=== PATIENT | male | born 2000 | race Caucasian/White ===

== ENCOUNTER 2018-05-17 00:50 | Observation (INO) ==
[2018-05-17] MEDS ORDERED: DiphenhydrAMINE HCL 50 MG/ML VIAL IV STA (01:22)
[2018-05-17] MEDS ORDERED: METOCLOPRAMIDE HCL INJ 5 MG/ML 2 ML VIAL IV STA (01:22)
[2018-05-17] MEDS ORDERED: KETOROLAC TROMETHAMINE 15 MG/ML VIAL IV STA (01:22)
[2018-05-17] MEDS ORDERED: SODIUM CHLORIDE 0.9% 1000ML 1,000 ML IV SCH (01:30)
[2018-05-17 01:32] LABS: Basophils # (auto) 0.03 K/uL (0-0.2); Basophils % (auto) 0.1 %; Eosinophils # (auto) 0.11 K/uL (0-0.5); Eosinophils % (auto) 0.5 %; Hematocrit (blood only) 47.8 % (42-52); Hemoglobin 16.9 g/dL (14.0-18.0); Immature Granulocytes # (auto) 0.07 K/uL (0.00-0.02); Immature Granulocytes % (auto) 0.3 %; Lymphocytes # (auto) 2.34 K/uL (1.2-3.4); Lymphocytes % (auto) 11.6 %; Mean Corpuscular Hgb Conc 35.4 g/dL (32-36); Mean Corpuscular Volume 87.4 fL (80-100); Mean Platelet Volume 11.3 fL (7.4-10.4); Monocytes # (auto) 1.15 K/uL (0.11-0.59); Monocytes % (auto) 5.7 %; Neutrophils % (auto) 81.8 %; Platelet Count 252 K/uL (130-400); RDW Coefficient of Variation 13.2 % (11.5-14.5); RDW Standard Deviation 42.4 fL (36.4-46.3); Red Blood Count 5.47 M/uL (4.7-6.1)
[2018-05-17 01:39] LABS: Albumin Level 4.8 gm/dl (3.4-5.0); Calcium 9.7 mg/dl (8.5-10.1); Creatinine Clr Calc Pharmacy 90.8 ml/min; Est GFR (African American) 87.8; Est GFR (Non-African American) 75.7; Potassium 3.9 mmol/L (3.5-5.1)
[2018-05-17 01:42] LABS: Albumin Globulin Ratio 1.3 (0.9-2); Bilirubin,Total 0.9 mg/dl (0.2-1); Globulin 3.6 gm/dl (2.5-4.0); Total Protein 8.4 gm/dl (6.4-8.2)
[2018-05-17 01:45] LABS: Appearance Urine Clear (Clear); Bilirubin Urine Negative (Negative); Color Urine Yellow; Glucose Urine UA Negative (Negative); Ketones Urine 2+ (Negative); Leukocyte Esterase Urine Negative (Negative); Nitrite Urine Negative (Negative); Protein Urine Negative (Negative); Specific Gravity Urine 1.029 (1.000-1.030); Urobilinogen Urine Negative (Negative); pH Urine 5.5 (4.5-7.5)
[2018-05-17] MEDS ORDERED: IOVERSOL 100ml IV PRN (02:02)
[2018-05-17] MEDS ORDERED: cefOXitin 2,000 MG/60 ML BAG IV STA (02:12)
[2018-05-17] MEDS ORDERED: cefOXitin 1,000 MG/50 ML BAG IV ONE (02:22)
--- NOTE | 2018-05-17 02:37 | History & Physical Bridge Note ---
Date of Service May 17, 2018 History & Physical Bridge Note I have examined the patient, reviewed the History & Physical and in the interval since the performance of the History & Physical I have noted the following changes of clinical significance: no changes noted
--- NOTE | 2018-05-17 02:37 | Surgery Consultation ---
Date of Consultation May 17, 2018 Assessment & Plan (1) Acute appendicitis: pt is a 18 year old male who presents to Er with acute abdominal pain, IMP: acute abdominal pain, acute appendicitis Plan, I recommend to do laparoscopic appendectomy, possible open, D/W benefits, risks and alternatives of the surgery, the risks - infection, bleeding, abscess , injury bowel, and , pt understood, he agrees with the surgery, I answered all questions, History of Present Illness History of Present Illness pt is a 18 year old male who presents to ER with 0.5 day history lower abdominal pain, now the pain is located at RLQ area, some nausea, no vomiting, pt denies fever, no diarrhea, pt is health in the past, pt had CBC , WBC 20,000 , CT scan - acute appendicitis. Allergies Allergy/AdvReac Type Severity Reaction Status Date / Time cashew nut Allergy Severe Anaphylaxis Verified 05/17/18 01:16 Home Medications Home Medications Medication Instructions Recorded Confirmed Type epinephrine [EpiPen] 0.3 mg IM DIRECTED PRN 05/17/18 05/17/18 History Patient History Medical History Acute appendicitis Social History Feels Safe at Home: Yes Smoking Status: Never smoker Review of Systems Constitutional: as per Subjective / HPI Ear, Nose, Mouth, Throat: as per Subjective / HPI Respiratory: as per Subjective / HPI Cardiovascular: as per Subjective / HPI Gastrointestinal: as per Subjective / HPI Genitourinary (Male): as per Subjective / HPI Musculoskeletal: as per Subjective / HPI Integumentary: as per Subjective / HPI Neurologic: as per Subjective / HPI Psychiatric: as per Subjective / HPI Endocrine: as per Subjective / HPI Hematologic / Lymphatic: as per Subjective / HPI Physical Exam 2 Vital Signs (Past 24 Hours): Last Vital Signs Temp 37.1 C 05/17/18 00:53 Pulse 71 05/17/18 02:04 Resp 15 05/17/18 02:04 BP 164/87 H 05/17/18 00:53 Pulse Ox 99 05/17/18 02:04 Constitutional: WD/WN, vitals as above well developed and well nourished Neck: trachea midline, no thyromegaly Respiratory: normal respiratory effort, lungs clear to auscultation normal respiratory effort Cardiovascular: RRR, no murmur, no edema Rate/Rhythm: regular rate and regular rhythm Heart Sounds: normal S1 and normal S2 Gastrointestinal (Abdomen): Percussion/Palpation: + abdomen tender, + guarding and abdomen soft some tenderness at RLQ, no rebound pain, BS + Neurologic: awake Psychiatric: Orientation: alert and oriented x 3 Lymphatic: no cervical or axillary lymphadenopathy Results & Data Laboratory Results Abnormal lab results 05/17/18 05/17/18 05/17/18 Range/Units 01:00 01:05 01:05 WBC 20.20 H (4.8-10.8) K/uL MPV 11.3 H (7.4-10.4) fL Immature Gran # (Auto) 0.07 H (0.00-0.02) K/uL Neut # (Auto) 16.50 H (1.4-6.5) K/uL [place] # (Auto) 1.15 H (0.11-0.59) K/uL Glucose 101 H (70-99) mg/dl Total Creatine Kinase 372 H (39-308) U/L Total Protein 8.4 H (6.4-8.2) gm/dl Lipase 65 L (73-393) U/L Urine Ketones 2+ H (Negative) Diagnostic Findings CT scan- acute appendicitis
--- NOTE | 2018-05-17 02:45 | Emergency Department Note ---
History of Present Illness General Chief complaint: Abdominal Pain Stated complaint: SEVERE ABDOMINAL PAIN,SOB,WEAKNESS History of Present Illness Maximum Pain Intensity: 8 This 18-year-old presents to the ER complaining of abdominal pain Location: Periumbilical Quality: Crampy Severity: Moderate Duration: Since 6 PM Timing: Started at 6 PM Context: Pain persisted and patient came here Modifying factors: better with nothing; worse with palpation Patient denies chest pain, dyspnea, vomiting, diarrhea, back pain, testicular pain, penile pain, urinary symptoms. No prior surgeries. Home Medications Home Medications Medication Instructions Recorded Confirmed Type epinephrine [EpiPen] 0.3 mg IM DIRECTED PRN 05/17/18 05/17/18 History Allergies Allergy/AdvReac Type Severity Reaction Status Date / Time cashew nut Allergy Severe Anaphylaxis Verified 05/17/18 01:16 Past Med/Surg History Medical History Acute appendicitis (Acute) No acute medical problems Social History Feels Safe at Home: Yes Smoking Status: Never smoker Review of Systems All systems reviewed & are unremarkable except as noted in HPI & below Physical Exam Vital Signs Vital Signs - 24 hr 05/17/18 00:53 05/17/18 02:04 Temperature 37.1 C Temperature Source Oral Sepsis Recent Fever Within 48 Hours No Sepsis Action Taken by Nursing No Action Required Pulse Rate 84 71 Pulse Rhythm Regular Pulse Strength Normal Respiratory Rate 16 15 Respiratory Effort / Characteristics Non-Labored Spontaneous Respiratory Depth Normal Respiratory Pattern Regular Blood Pressure 164/87 H Blood Pressure Mean 112 Blood Pressure Position Sitting Pulse Oximetry 99 99 Oxygen Delivery Method Room Air Room Air VITALS: Vitals are noted on the nurse's note and reviewed by myself. Vital signs stable. GENERAL: White male, in no acute distress, nondiaphoretic, well-developed well- nourished. SKIN: The skin was without rashes, erythema, edema, or bruising. There is no tenting of the skin. Capillary reflex less than 2 seconds. HEAD: Normocephalic atraumatic. EARS: External auditory canals clear, tympanic membranes pearly suther[place] without erythema or effusion bilaterally. EYES: Pupils equal round and reactive to light and accommodation. Conjunctivae without injection, sclerae without icterus. Extraocular movements intact. NOSE: Patent, turbinates without inflammation or discharge. MOUTH: Mucous membranes moist. Pharynx without erythema or exudate. Uvula midline. Airway patent. Tongue does not deviate. NECK: Supple without nuchal rigidity. No lymphadenopathy. No thyromegaly. Cervical spine is nontender. No JVD. HEART: Regular rate and rhythm without murmurs gallops or rubs. LUNGS: Clear to auscultation bilaterally without wheezes, rales or rhonchi. No retractions or accessory muscle use. ABDOMEN: Positive bowel sounds x 4. Normal tympanic percussion. Soft, tender to palpation right lower quadrant, without masses or organomegaly. Goel sign negative. No guarding or rebound tenderness. No CVA tenderness MUSCULOSKELETAL: No muscle atrophy, erythema, or edema noted. NEURO: Patient was alert and oriented to person place and time. Normal sensation to light and sharp touch. No focal neurological deficits. Course Administered Medications Cefoxitin Sodium (Mefoxin) 2,000 mg in 60 mls @ 100 mls/hr IV NOW STA Stop: 05/17/18 02:47 Last Admin: 05/17/18 02:31 Dose: 100 mls/hr Ioversol (Optiray 320 100ml) 100 ml IV ONCE PRN PRN Reason: Interaction Checking Stop: 05/21/18 02:01 Last Admin: 05/17/18 02:03 Dose: 93 ml Discontinued Medications Cefoxitin Sodium (Mefoxin) Confirm Administered Dose 1,000 mg IV .STK-MED ONE Stop: 05/17/18 02:23 Last Admin: 05/17/18 02:31 Dose: Not Given Diphenhydramine HCl (Benadryl) 12.5 mg IV NOW STA Stop: 05/17/18 01:23 Last Admin: 05/17/18 01:27 Dose: 12.5 mg Sodium Chloride (Nss 1000ml) 1,000 mls @ 999 mls/hr IV .Q1H1M ROOPA Stop: 05/17/18 02:30 Last Admin: 05/17/18 01:38 Dose: 999 mls/hr Ketorolac Tromethamine (Toradol) 10 mg IV NOW STA Stop: 05/17/18 01:23 Last Admin: 05/17/18 01:28 Dose: 10 mg Metoclopramide HCl (Reglan) 10 mg IV NOW STA Stop: 05/17/18 01:23 Last Admin: 05/17/18 01:28 Dose: 10 mg Medical Decision Making Medical Records Attestation: I reviewed the patient's medical records. Home Medications Current Medication List: was personally reviewed by me Laboratory Data Attestation: I reviewed the patient's lab results. Result diagrams: 05/17/18 01:05 05/17/18 01:05 Lab Results 05/17/18 05/17/18 05/17/18 Range/Units 01:00 01:05 01:05 WBC 20.20 H (4.8-10.8) K/uL RBC 5.47 (4.7-6.1) M/uL Hgb 16.9 (14.0-18.0) g/dL Hct 47.8 (42-52) % MCV 87.4 (80-100) fL MCH 30.9 (25-34) pg MCHC 35.4 (32-36) g/dL RDW Std Deviation 42.4 (36.4-46.3) fL RDW Coeff of Yasmani 13.2 (11.5-14.5) % Plt Count 252 (130-400) K/uL MPV 11.3 H (7.4-10.4) fL Immature Gran % (Auto) 0.3 % Neut % (Auto) 81.8 % Lymph % (Auto) 11.6 % [place] % (Auto) 5.7 % Eos % (Auto) 0.5 % Baso % (Auto) 0.1 % Immature Gran # (Auto) 0.07 H (0.00-0.02) K/uL Neut # (Auto) 16.50 H (1.4-6.5) K/uL Lymph # (Auto) 2.34 (1.2-3.4) K/uL [place] # (Auto) 1.15 H (0.11-0.59) K/uL Eos # (Auto) 0.11 (0-0.5) K/uL Baso # (Auto) 0.03 (0-0.2) K/uL Sodium 137 (136-145) mmol/L Potassium 3.9 (3.5-5.1) mmol/L Chloride 102 (98-107) mmol/L Carbon Dioxide 29 (21-32) mmol/L Anion Gap 6.0 (3-11) BUN 17 (7-18) mg/dl Creatinine 1.34 (0.6-1.4) mg/dl Est Cr Clr Drug Dosing 90.8 ml/min Est GFR ( Amer) 87.8 Est GFR (Non-Af Amer) 75.7 BUN/Creatinine Ratio 13.0 (10-20) Glucose 101 H (70-99) mg/dl Calcium 9.7 (8.5-10.1) mg/dl Total Bilirubin 0.9 (0.2-1) mg/dl AST 27 (15-37) U/L ALT 29 (12-78) U/L Alkaline Phosphatase 66 (45-117) U/L Total Creatine Kinase 372 H (39-308) U/L Total Protein 8.4 H (6.4-8.2) gm/dl Albumin 4.8 (3.4-5.0) gm/dl Globulin 3.6 (2.5-4.0) gm/dl Albumin/Globulin Ratio 1.3 (0.9-2) Lipase 65 L (73-393) U/L Urine Color Yellow Urine Appearance Clear (Clear) Urine pH 5.5 (4.5-7.5) Ur Specific [place] 1.029 (1.000-1.030) Urine Protein Negative (Negative) Urine Glucose (UA) Negative (Negative) Urine Ketones 2+ H (Negative) Urine Blood Negative (Negative) Urine Nitrite Negative (Negative) Urine Bilirubin Negative (Negative) Urine Urobilinogen Negative (Negative) Ur Leukocyte Esterase Negative (Negative) [facility] Narrative Prior records/ancillary studies reviewed. Triage Nursing notes reviewed. Additional history obtained from friend. The patient's history was concerning for abdominal pain. Differential diagnosis: Etiologies such as appendicitis, diverticulitis, PUD, biliary pathology, UTI, pancreatitis, obstruction, mesenteric ischemia, aortic pathology, infections, inflammatory bowel disease, renal colic, as well as others were entertained. Physical examination findings: As above. ER treatment provided: IV Toradol, IV Mefoxin On reassessment the patient felt better. Diagnostics interpreted by me: The labs revealed leukocytosis. Imaging studies: CT was reviewed and read by stat radiology and concerning for acute appendicitis Consultation: A consultation was placed with the surgeon, Dr. Marte. The case was discussed and diagnostics were reviewed. The patient was evaluated in the ER for further treatment. Exam and history seem consistent with acute appendicitis. Surgery was consulted. He will take the patient to the OR. Patient started on IV antibiotics. He was placed n.p.o. By the evaluation outlined above emergent etiologies such as diverticulitis, PUD, biliary pathology, UTI, pancreatitis, obstruction, mesenteric ischemia, aortic pathology, inflammatory bowel disease, renal colic, as well as others were deemed relatively unlikely. The pt informed about the findings as listed above. All questions were answered and pleased with the treatment. Case reviewed with my attending The chart was completed utilizing [email or web address] voice recognition software. Grammatical errors, random word insertions, pronoun errors, and incomplete sentences are an occassional consequence of this system due to software limitations, ambient noise, and hardware issues. Any formal questions or concerns about the content, text, or information contained within the body of this dictation should be directly addressed to the physician health center assistant for clarification. Impression & Plan Acute appendicitis Discharge Plan Visit Data Chief Complaint: Abdominal Pain Stated Complaint: SEVERE ABDOMINAL PAIN,SOB,WEAKNESS ED Provider: Pepito Sanders ED Midlevel Provider: Shawnee Sosa Discharge Problem: Acute appendicitis Patient Disposition: Being Evaluated by Surgeon Condition: Good Forms Stand Alone Forms: My [employer] Prescriptions Prescriptions: No Action epinephrine [EpiPen] 0.3 mg/0.3 mL Auto-Injector 0.3 mg IM DIRECTED PRN (Reason: Allergic Reaction) RF: 0 Referrals Referrals: PCP,NO [Primary Care Provider] -
[2018-05-17] MEDS ORDERED: BACITRACIN OINT 15 GM TUBE ONE (04:53)
[2018-05-17] MEDS ORDERED: BUPIVACAINE 0.5 % 5 MG/1 ML MPF 30ML VIAL ONE (04:53)
[2018-05-17] MEDS ORDERED: LIDOCAINE HCL 1% 20 ML VIAL ONE (04:53)
--- NOTE | 2018-05-17 04:59 | Anesthesiology Consultation ---
Date of Service May 17, 2018 Assessment & Plan Chart Review Chart Review: Acceptable Risk for Surgery Consults Requested none ASA [id number] Proposed Anesthesia Anesthesia Type: General Risk / Benefits Reviewed With: PT / POA / Parent / Guardian, Accepts Plan and Informed Consent Obtained NPO Date Last Intake of Fluids: 05/16/18 Time Last Intake of Fluids: 23:00 Date Last Intake of Solids: 05/16/18 Time Last Intake of Solids: 23:00 History Surgery Operation Date: 05/17/18 04:00 Proposed Procedures p Laparoscopic Appendectomy - Osito Marte MD Height/Weight Height: 5 ft 10 in Weight: 77.6 kg Allergies Allergy/AdvReac Type Severity Reaction Status Date / Time cashew nut Allergy Severe Anaphylaxis Verified 05/17/18 01:16 Medications Home Medications Medication Instructions Recorded Confirmed Last Taken epinephrine [EpiPen] 0.3 mg IM DIRECTED PRN 05/17/18 05/17/18 Unknown Active Medications Generic Name Dose Route Start Last Admin Trade Name Freq PRN Reason Stop Dose Admin Ioversol 100 ml 05/17/18 02:02 05/17/18 02:03 Optiray 320 100ml IV 05/21/18 02:01 93 ml ONCE PRN Administration Interaction Checking Past Medical History Medical History Acute appendicitis (Acute) No acute medical problems Past Anesthesia History No Hx of Anesthesia Complications and No Family Hx of Anesthesia Complications History of PONV No Motion Sickness Screening History of Motion Sickness: No Social History Smoking Status: Never smoker Exercise / Class Metabolic Activity 1 > 8 Run/Swim/Ski/Tennis Physical Exam Vital Signs Last Vital Signs Temp 37.1 C 05/17/18 00:53 Pulse 71 05/17/18 04:35 Resp 16 05/17/18 04:35 BP 140/80 05/17/18 04:35 Pulse Ox 100 05/17/18 04:35 ENMT Mouth: + small oral opening; no dentition abnormality and dentition not poor Thyromental Distance: < 3.5 Finger Breadths Mallampati Class: II Neck normal visual inspection and trachea midline; neck extension not limited Respiratory normal respiratory effort Auscultation: lungs clear to auscultation bilaterally Cardiovascular Rate/Rhythm: regular rate and regular rhythm Heart Sounds: no murmur Vessels: no carotid bruit Musculoskeletal Spine: normal cervical ROM Extremities: full ROM of extremities Neurologic moves all extremities Motor/Sensory: no sensory deficit Psychiatric Orientation: alert and oriented x 3 Testing Laboratory Results 05/17/18 01:05 05/17/18 01:05 Urine Color Yellow 05/17/18 01:00 Urine Appearance Clear (Clear) 05/17/18 01:00 Urine pH 5.5 (4.5-7.5) 05/17/18 01:00 Ur Specific [place] 1.029 (1.000-1.030) 05/17/18 01:00 Urine Protein Negative (Negative) 05/17/18 01:00 Urine Glucose (UA) Negative (Negative) 05/17/18 01:00 Urine Ketones 2+ (Negative) H 05/17/18 01:00 Urine Nitrite Negative (Negative) 05/17/18 01:00 Ur Leukocyte Esterase Negative (Negative) 05/17/18 01:00
[2018-05-17] MEDS ORDERED: PROPOFOL IV EMULSION 10 MG/ML 20 ML VIAL IV ONE (05:07)
[2018-05-17] MEDS ORDERED: MIDAZOLAM HCL 1 MG/ML 2ML VIAL ONE (05:10)
[2018-05-17] MEDS ORDERED: SUCCINYLCHOLINE 100MG/5ML SYR ONE (05:10)
[2018-05-17] MEDS ORDERED: fentaNYL citrate 100 MCG/2 ML VIAL ONE (05:11)
[2018-05-17] MEDS ORDERED: PROMETHAZINE HCL 12.5 MG in SODIUM CHLORIDE 0.9% 50 ML IV PRN (05:51)
[2018-05-17] MEDS ORDERED: ATROPINE SULFATE 0.1 MG/ML 10ML SYR IV PRN (05:51)
[2018-05-17] MEDS ORDERED: ONDANSETRON INJ 2 MG/ML 2 ML VIAL IV PRN ×2 (05:51→06:15)
[2018-05-17] MEDS ORDERED: FLUMAZENIL 0.1 MG/1 ML 10 ML VIAL IV PRN (05:51)
[2018-05-17] MEDS ORDERED: NALOXONE HCL 0.4 MG/1 ML VIAL/CARP IV PRN (05:51)
[2018-05-17] MEDS ORDERED: ePHEDrine sulfate 50 MG/ML AMP IV PRN (05:51)
[2018-05-17] MEDS ORDERED: HYDROmorphone INJ 1 MG/ML SYRINGE IV PRN (05:51)
[2018-05-17] MEDS ORDERED: CISATRACURIUM BESYLATE IV SOLN 2 MG/ML 10 ML VIAL IV ONE (05:52)
[2018-05-17] MEDS ORDERED: DEXAMETHASONE SOD INJ 4 MG/ML VIAL ONE (05:54)
[2018-05-17] MEDS ORDERED: NEOSTIGMINE METHYLSULFATE 5 MG/5 ML SYR ONE (05:55)
[2018-05-17] MEDS ORDERED: ONDANSETRON INJ 2 MG/ML 2 ML VIAL ONE (05:55)
[2018-05-17] MEDS ORDERED: GLYCOPYRROLATE 0.2 MG/ML VIAL ONE (05:55)
--- NOTE | 2018-05-17 06:11 | Post Operative Brief Note ---
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
[2018-05-17] MEDS ORDERED: OXYCODONE/ACETAMINOPHEN 5mg/325mg TAB PO PRN (06:18)
[2018-05-17] MEDS ORDERED: HYDROmorphone INJ 0.5 MG/0.5 ML SYR IV PRN (06:18)
--- NOTE | 2018-05-17 06:54 | Anesthesiology Progress Note ---
Date of Service May 17, 2018 Anesthesia Post Procedure Vital Signs Vital Signs: Temp Pulse Pulse Pulse Resp BP BP 05/17/18 06:40 36.6 C 77 18 122/71 05/17/18 06:30 60 18 123/73 05/17/18 06:24 36.6 C 75 18 139/77 05/17/18 04:35 71 16 140/80 05/17/18 04:18 71 15 143/81 H 05/17/18 02:50 83 16 158/91 H 05/17/18 02:04 71 15 05/17/18 00:53 37.1 C 84 16 164/87 H Pulse Ox 05/17/18 06:40 100 05/17/18 06:30 100 05/17/18 06:24 100 05/17/18 04:35 100 05/17/18 04:18 98 05/17/18 02:50 98 05/17/18 02:04 99 05/17/18 00:53 99 Notes Mental Status: alert / awake / arousable Patient Amnestic to Procedure: Yes Nausea / Vomiting: adequately controlled Pain: adequately controlled Airway Patency, RR, SpO2: stable & adequate BP & HR: stable & adequate Hydration State: stable & adequate Anesthetic Complications: no major complications apparent
--- NOTE | 2018-05-17 06:55 | CT Scan Report ---
CT OF THE ABDOMEN AND PELVIS WITH CONTRAST CLINICAL HISTORY: Mid abdominal pain. COMPARISON STUDY: None. TECHNIQUE: Following IV administration of 93 mL of Optiray-320, axial images of the abdomen and pelvi s were obtained from the lung bases to the proximal femurs. Images were reviewed in the axial, sagitt al, and coronal planes. IV contrast was administered without complication. Automated exposure contro l was utilized for the study. A dose lowering technique was utilized adhering to the principles of A ALFREDA. CT DOSE: 294.63 mGy.cm FINDINGS: Lung bases are clear. The liver, spleen, adrenal glands, kidneys and pancreas are normal. T here is no biliary or pancreatic ductal dilatation. There is no evidence for a bowel obstruction. The appendix is fluid-filled and mildly dilated, measuring 8 mm in caliber. There is slight increased en hancement of the appendiceal wall. There is no periappendiceal infiltration. There is no free air or abscess. There is no hydronephrosis. Skeletal structures are unremarkable. IMPRESSION: Mildly dilated fluid-filled appendix. The findings favor early acute appendicitis. No fr ee air or abscess. Electronically signed by: Shen Barraza M.D. 05/17/2018 6:53 AM
[2018-05-17] MEDS ORDERED: LACTATED RINGER'S 1,000 ML IV SCH (07:30)
[2018-05-17] MEDS ORDERED: EPINEPHRINE ADULT AUTO-INJECT 0.3 MG SYR IM PRN (07:32)
[2018-05-17 09:40] LABS: Basophils # (auto) 0.01 K/uL (0-0.2); Basophils % (auto) 0.1 %; Eosinophils # (auto) 0.01 K/uL (0-0.5); Eosinophils % (auto) 0.1 %; Hematocrit (blood only) 42.8 % (42-52); Hemoglobin 14.6 g/dL (14.0-18.0); Immature Granulocytes # (auto) 0.04 K/uL (0.00-0.02); Immature Granulocytes % (auto) 0.3 %; Lymphocytes # (auto) 0.87 K/uL (1.2-3.4); Lymphocytes % (auto) 5.7 %; Mean Corpuscular Hgb Conc 34.1 g/dL (32-36); Mean Corpuscular Volume 87.3 fL (80-100); Mean Platelet Volume 11.1 fL (7.4-10.4); Monocytes # (auto) 0.14 K/uL (0.11-0.59); Monocytes % (auto) 0.9 %; Neutrophils % (auto) 92.9 %; Platelet Count 220 K/uL (130-400); RDW Coefficient of Variation 13.5 % (11.5-14.5); RDW Standard Deviation 42.9 fL (36.4-46.3); White Blood Count 15.17 K/uL (4.8-10.8)
--- NOTE | 2018-05-17 09:45 | Operative Report ---
DATE OF OPERATION: 05/17/2018 PREOPERATIVE DIAGNOSIS: Acute appendicitis. POSTOPERATIVE DIAGNOSIS: Acute appendicitis. PROCEDURE: Laparoscopic appendectomy. SURGEON: Osito Marte MD ANESTHESIA: General. ESTIMATED BLOOD LOSS: About 5 mL. FINDINGS: Acute appendicitis. COMPLICATIONS: None. INDICATIONS FOR THE PROCEDURE: This is a 18-year-old gentleman who presented to the ED with half-day history of right lower quadrant pain. The patient had a CT scan diagnosis of acute appendicitis. We decided to take the patient to the OR and do the laparoscopic appendectomy, possible open. I did talk to the patient about the benefit, the risk, alternate procedure. I indicated the risks may include but not limited such as bleeding, infection, abscess, injury to bowel, even . The patient understands. He signed informed consent and I answered all questions. DETAILS OF PROCEDURE: We brought the patient to the OR, put the patient on the supine position. The patient received SCD on bilateral legs to prevent DVT. Also, the patient received 2 g cefoxitin IV for prophylactic antibiotic. The patient received general anesthesia without difficulty. The abdomen was prepped and draped in routine sterile fashion. After time out, I injected the local anesthesia by using 1% lidocaine mixed with 0.5% Marcaine just above umbilicus. I then made a small incision just above the umbilical, opened fascia and opened peritoneum under direct vision, put a Robbie trocar in, connected to CO2 to create pneumoperitoneum. Flow rate is 6 liters per minute. Pressure not more than 14 mmHg. Once we got a nice pneumoperitoneum, we put the camera in, looked around the abdomen, shows normal finding on the small bowel, large bowel; however, the appendix is showing significant inflammation, a large confirmed diagnosis of acute appendicitis, and at this moment, we put another two 5 mm trocar on the left lower quadrant area. Once all trocars in, we used a grasper to hold the appendix, used a harmonic to take down appendiceal, rechecked no active bleeding. Then, we used a 45 mm Endo-LEVI staple transection on the base of the appendix, rechecked the staple line intact and no active bleeding, no leak. Then, we removed the appendix through the catch bag. Then, we reinserted Robbie trocar in, connected to CO2 to create pneumoperitoneum. Again, I looked around the abdomen, no active bleeding. The staple line is intact and no leak. Then, we removed all trocar under direct vision. No active bleeding from the trocar sites. Pneumoperitoneum was released. I closed the umbilical incision, fascial layer by using #1 Vicryl [id number] x2, closed subcutaneous layer by using 2-0 Vicryl interrupted and closed skin by using 4-0 Vicryl continuous running. Then, we closed another two 5 mm trocar site skin only by using 4-0 Vicryl. Then we put the dressing on. The patient tolerated the procedure well. All the instrument, needle and sponge count were correct x2 at the end of case. The patient transferred to recovery room in stable condition. The specimen sent to pathology. After the procedure, I did call the patient's parents about the OR finding and procedure we did, they understand. I attest to the content of the Intraoperative Record and any orders documented therein. Any exception s are noted below.
[2018-05-17] MEDS ORDERED: ACETAMINOPHEN 325 MG TAB PO PRN (11:16)
--- NOTE | 2018-05-17 14:08 | Surgery Progress Note ---
Date of Service May 17, 2018 Assessment & Plan (1) Acute appendicitis: POD # 0 s/p laparoscopic appendectomy -vitals stable, afebrile - minimal post op pain - no n/v, tolerating diet - urinating without difficulty Plan: Advance diet as tolerated PO Percocet prn pain Ambulate hallway Incentive spirometer Discharge home late afternoon discharge instructions reviewed may take PO Percocet prior to discharge for ride home to [place] with father f/u surgical office in 1-2 weeks Rx for Percocet prn pain Subjective feeling well incisional pain, mild has not taken anything for pain post op urinating without difficulty tolerated clears, no n/v has not ambulated hallway Physical Exam 2 Vital Signs (Past 24 Hours): Last Vital Signs Temp 36.6 C 05/17/18 11:20 Pulse 66 05/17/18 11:20 Resp 18 05/17/18 11:20 BP 111/71 05/17/18 11:20 Pulse Ox 98 05/17/18 11:20 Constitutional: WD/WN, vitals as above no acute distress Respiratory: normal respiratory effort; no respiratory distress Gastrointestinal (Abdomen): Inspection/Auscultation: abdomen normal to inspection; abdomen not distended Percussion/Palpation: + abdomen tender (at incision sites, appropriate post op) Skin: no rashes, warm and dry + incision (Covered with dry dressings, intact, clean) Psychiatric: A+Ox3, euthymic affect Results & Data Laboratory Results 05/17/18 05/17/18 05/17/18 Range/Units 09:23 01:05 01:05 WBC 15.17 H 20.20 H (4.8-10.8) K/uL RBC 4.90 5.47 (4.7-6.1) M/uL Hgb 14.6 16.9 (14.0-18.0) g/dL Hct 42.8 47.8 (42-52) % MCV 87.3 87.4 (80-100) fL MCH 29.8 30.9 (25-34) pg MCHC 34.1 35.4 (32-36) g/dL RDW Std Deviation 42.9 42.4 (36.4-46.3) fL RDW Coeff of Yasmani 13.5 13.2 (11.5-14.5) % Plt Count 220 252 (130-400) K/uL MPV 11.1 H 11.3 H (7.4-10.4) fL Immature Gran % (Auto) 0.3 0.3 % Neut % (Auto) 92.9 81.8 % Lymph % (Auto) 5.7 11.6 % [place] % (Auto) 0.9 5.7 % Eos % (Auto) 0.1 0.5 % Baso % (Auto) 0.1 0.1 % Immature Gran # (Auto) 0.04 H 0.07 H (0.00-0.02) K/uL Neut # (Auto) 14.10 H 16.50 H (1.4-6.5) K/uL Lymph # (Auto) 0.87 L 2.34 (1.2-3.4) K/uL [place] # (Auto) 0.14 1.15 H (0.11-0.59) K/uL Eos # (Auto) 0.01 0.11 (0-0.5) K/uL Baso # (Auto) 0.01 0.03 (0-0.2) K/uL Sodium 137 (136-145) mmol/L Potassium 3.9 (3.5-5.1) mmol/L Chloride 102 (98-107) mmol/L Carbon Dioxide 29 (21-32) mmol/L Anion Gap 6.0 (3-11) BUN 17 (7-18) mg/dl Creatinine 1.34 (0.6-1.4) mg/dl Est Cr Clr Drug Dosing 90.8 ml/min Est GFR ( Amer) 87.8 Est GFR (Non-Af Amer) 75.7 BUN/Creatinine Ratio 13.0 (10-20) Glucose 101 H (70-99) mg/dl Calcium 9.7 (8.5-10.1) mg/dl Total Bilirubin 0.9 (0.2-1) mg/dl AST 27 (15-37) U/L ALT 29 (12-78) U/L Alkaline Phosphatase 66 (45-117) U/L Total Creatine Kinase 372 H (39-308) U/L Total Protein 8.4 H (6.4-8.2) gm/dl Albumin 4.8 (3.4-5.0) gm/dl Globulin 3.6 (2.5-4.0) gm/dl Albumin/Globulin Ratio 1.3 (0.9-2) Lipase 65 L (73-393) U/L Urine Color Urine Appearance (Clear) Urine pH (4.5-7.5) Ur Specific [place] (1.000-1.030) Urine Protein (Negative) Urine Glucose (UA) (Negative) Urine Ketones (Negative) Urine Blood (Negative) Urine Nitrite (Negative) Urine Bilirubin (Negative) Urine Urobilinogen (Negative) Ur Leukocyte Esterase (Negative) 05/17/18 Range/Units 01:00 WBC (4.8-10.8) K/uL RBC (4.7-6.1) M/uL Hgb (14.0-18.0) g/dL Hct (42-52) % MCV (80-100) fL MCH (25-34) pg MCHC (32-36) g/dL RDW Std Deviation (36.4-46.3) fL RDW Coeff of Yasmani (11.5-14.5) % Plt Count (130-400) K/uL MPV (7.4-10.4) fL Immature Gran % (Auto) % Neut % (Auto) % Lymph % (Auto) % [place] % (Auto) % Eos % (Auto) % Baso % (Auto) % Immature Gran # (Auto) (0.00-0.02) K/uL Neut # (Auto) (1.4-6.5) K/uL Lymph # (Auto) (1.2-3.4) K/uL [place] # (Auto) (0.11-0.59) K/uL Eos # (Auto) (0-0.5) K/uL Baso # (Auto) (0-0.2) K/uL Sodium (136-145) mmol/L Potassium (3.5-5.1) mmol/L Chloride (98-107) mmol/L Carbon Dioxide (21-32) mmol/L Anion Gap (3-11) BUN (7-18) mg/dl Creatinine (0.6-1.4) mg/dl Est Cr Clr Drug Dosing ml/min Est GFR ( Amer) Est GFR (Non-Af Amer) BUN/Creatinine Ratio (10-20) Glucose (70-99) mg/dl Calcium (8.5-10.1) mg/dl Total Bilirubin (0.2-1) mg/dl AST (15-37) U/L ALT (12-78) U/L Alkaline Phosphatase (45-117) U/L Total Creatine Kinase (39-308) U/L Total Protein (6.4-8.2) gm/dl Albumin (3.4-5.0) gm/dl Globulin (2.5-4.0) gm/dl Albumin/Globulin Ratio (0.9-2) Lipase (73-393) U/L Urine Color Yellow Urine Appearance Clear (Clear) Urine pH 5.5 (4.5-7.5) Ur Specific [place] 1.029 (1.000-1.030) Urine Protein Negative (Negative) Urine Glucose (UA) Negative (Negative) Urine Ketones 2+ H (Negative) Urine Blood Negative (Negative) Urine Nitrite Negative (Negative) Urine Bilirubin Negative (Negative) Urine Urobilinogen Negative (Negative) Ur Leukocyte Esterase Negative (Negative) _ (1) Acute appendicitis Acute appendicitis type: with localized peritonitis Appendicitis abscess presence: without abscess Appendicitis gangrene presence: unspecified whether gangrene present Appendicitis perforation presence: without perforation Qualified Code(s): K35.30 - Acute appendicitis with localized peritonitis, without perforation or gangrene
--- NOTE | 2018-05-19 15:57 | Discharge Summary ---
Date of Service May 19, 2018 Admission HPI Per Admitting Provider pt is a 18 year old male who presents to ER with 0.5 day history lower abdominal pain, now the pain is located at RLQ area, some nausea, no vomiting, pt denies fever, no diarrhea, pt is health in the past, pt had CBC , WBC 20,000 , CT scan - acute appendicitis. Principal Diagnosis Acute Appendicitis Discharge Exam Constitutional WD/WN, vitals as above no acute distress Respiratory normal respiratory effort; no respiratory distress Gastrointestinal (Abdomen) Inspection/Auscultation: abdomen normal to inspection; abdomen not distended Percussion/Palpation: + abdomen tender (at incision sites, appropriate post op) Skin no rashes, warm and dry + incision (Covered with dry dressings, intact, clean) Psychiatric A+Ox3, euthymic affect Discharge Data Allergies Allergy/AdvReac Type Severity Reaction Status Date / Time cashew nut Allergy Severe Anaphylaxis Verified 05/17/18 01:16 Consultations 05/17/18 02:15 ED Decision to Admit Stat Procedures Performed Operation Date: 05/17/18 04:00 Actual Procedures p Laparoscopic Appendectomy - Osito Marte MD Ordered Studies 05/17/18 01:22 CT abd pelvis IV con only Urgent Hospital Course (1) Acute appendicitis: Patient was taken to operating room for laparoscopic appendectomy by Dr. Marte. Patient found to have acute appendicitis without perforation or abscess. Patient tolerated procedure well and was transferred to recovery room and then to medical/surgical floor for post op care. Started on IV fluids, PO Percocet with breakthrough IV Dilaudid as needed for pain, IV Zofran prn nasuea , acitivity as tolerated, clear liquid diet, SCDs for DVT prophylaxis, and incentive spirometry. Patient was evlauation on POD # 0 about 6 hours post op. Had not urinated yet. Diet was advanced to regular diet for lunch. Patinet re -evaluated in the afternoon about 10 hours post op. Vitals stable, afebrile, minimal post op pain, no n/v, tolerating diet, urinating without difficulty. Patient was discharge home in stable condition. Total Time Total Time Spent Total Time Spent (In Minutes): 30 Total Time Includes: Examination of the Patient, Discharge Planning and Medication Reconciliation Discharge Plan Discharge Items Patient Disposition: Home - Self-Care Reason For Visit: ACUTE APPENDICITIS Discharge Diagnosis: Same Condition: Good Discharge Goals: Decrease discomfort and Improve function Activity: Per 'Additional Instructions' section Non-emergency contact: Primary Care Provider and Surgeon Call non-emergency contact if: your pain is not controlled, your pain is worsening, your pain is concerning for you, you have a fever, your temperature is above 101, your wound has increased redness and your wound has increased drainage Diet: Regular Addtl Provider Instructions: No heavy lifting over 20 pounds for 3 weeks No strenuous activity for 2 weeks or until cleared by surgeon No submerging incisions underwater for 2 weeks (no bathing, swimming, or hot tubs) No driving while taking narcotic pain medication or until you are pain free You may shower in 3 days, sponge bath and wash hair in meantime. Keep dressings clean and dry, after 3 days remove outer dressings and shower. Leave steri strips on incisions for 7 days and then remove. Walking and light activity is encouraged to prevent blood clots from forming in your legs. You will be given prescription for narcotic pain medication (Percocet) as needed for moderate to severe pain. Take as directed. This medication may cause drowsiness and constipation. You may take extra strength Ibuprofen as needed for mild pain -May take 600 mg of Ibuprofen every 6 hours as needed To avoid constipation: -Drink plenty of liquids, avoid foods that constipate, daily walking - May take stool softener (Colace) daily or twice a day while taking pain medication - If above measures do not work, you may take Miralax or Milk of Magnesia Follow-up in surgical office in 1-2 weeks, please call office at [phone] to make an appointment. Prescriptions: New oxycodone-acetaminophen 5-325 mg tablet 1 tab PO Q4H PRN (Reason: pain) Qty: 18 RF: 0 Continue epinephrine [EpiPen] 0.3 mg/0.3 mL Auto-Injector 0.3 mg IM DIRECTED PRN (Reason: Allergic Reaction) RF: 0 Stand-Alone Forms: My [facility], Opioid Pain Management, Work/ School Release (Inpt) Discharge Orders: Discharge Order (Routine); Ordered 05/17/18 Ordered By: Evelia Pittman Admission Data Admit Date/Time: 05/17/18 06:15 Attending Provider: Osito Marte Admit Provider: Osito Marte Primary Care Provider: PCP,NO Other Providers: Osito Marte Service: Surgical Services Other Interventions: Discharge Summary Assessment (RN) Last Done: 05/17/18 16:07 Pending Studies at Discharge: Yes (Appendix pathology, will be reviewed at follow-up visit) DC Date/Time DO NOT enter until pt leaves facility: 05/17/18 16:41
== END 2018-05-17 16:41 | disposition home or self-care (01) ==
LOC: 3W 00:50 → ED 00:50 → 3W 04:35